=== PATIENT | male | born 1985 | race Caucasian/White ===

== ENCOUNTER 2021-03-14 16:33 | Emergency (ER) | payer OTHER ==
[~2021-03-14] VITALS: Ht 170.2 cm; Wt 100.0 kg
[2021-03-14] MEDS ORDERED: ZESTRIL40 M1 PO (17:00)
[2021-03-14 18:50] LABS: BASO # 0.07 K/mm3 (0.02-0.10); EOS # 0.22 K/mm3 (0.04-0.40); EOS % 3.5 % (0.0-4.0); HEMATOCRIT 49.1 % (42.0-52.0); HEMOGLOBIN 16.9 g/dL (13.5-18.0); LYMPH# 2.03 K/mm3 (1.50-4.00); MEAN CELL VOLUME 89 fl (78-100); MEAN CORPUSCULAR HEMOGLOBIN 31 pg (27-31); MEAN CORPUSCULAR HGB CONC 34 g/dL (33-37); MEAN PLATELET VOLUME 10.5 fl (7.4-10.4); MONO # 0.46 K/mm3 (0.20-0.80); NEU # 3.51 K/mm3 (1.40-6.50); PLATELET COUNT 137 K/mm3 (130-400); RED BLOOD COUNT 5.52 M/mm3 (4.20-5.60); RED CELL DISTRIBUTION WIDTH 13.3 % (11.5-14.5); WHITE BLOOD COUNT 6.3 K/mm3 (4.8-10.8)
[2021-03-14 18:59] LABS: ALBUMIN 4.3 g/dL (3.5-5.0); POTASSIUM 3.6 mmol/L (3.5-5.1); SODIUM 139 mmol/L (136-145)
[2021-03-14 19:01] LABS: GLUCOSE 127 mg/dL (75-110); TOTAL PROTEIN 7.9 g/dL (6.4-8.3)
[2021-03-14 19:02] LABS: CARBON DIOXIDE 23 mmol/L (22-29)
[2021-03-14 19:03] LABS: TOTAL BILIRUBIN 0.7 mg/dL (0.2-1.2)
[2021-03-14 19:07] LABS: AST-SGOT 44 U/L (5-34)
[2021-03-14 19:08] LABS: ALT/SGPT 50 U/L (0-55)
[2021-03-14 19:24] LABS: TROPONIN-I < 0.030 ng/mL (<0.030)
[2021-03-14] MEDS ORDERED: LISINOPRIL40 MG PO (19:49)
[2021-03-14 20:02] VITALS: BP 158/106
== END 2021-03-14 20:02 | disposition home or self-care (01) ==
LOC: ED 16:33
PROVIDERS: Physician Assistant
DX: R04.0 Epistaxis (principal); I10 Essential (primary) hypertension; Z79.899 Other long term (current) drug therapy
CPT/HCPCS: J1200; J7030

== ENCOUNTER 2021-10-24 01:45 | Emergency (ER) | payer OTHER ==
[~2021-10-24] VITALS: Ht 172.7 cm; Wt 100.0 kg
[~2021-10-24 01:45] MED LIST: LISINOPRIL40 MG PO; ZESTRIL40 M1 PO
[2021-10-24 01:59] VITALS: BP 151/92
[2021-10-24] MEDS ORDERED: NAPROXEN D/R500 MG PO (02:04)
[2021-10-24] MEDS ORDERED: PRILOSEC OTC20 MG PO (02:04)
[2021-10-24] MEDS ORDERED: TRAMADOL 50 MG TAB PO (03:18)
[2021-10-24] MEDS ORDERED: DECADRON 4MG TAB4 MG PO (03:18)
== END 2021-10-24 03:25 | disposition home or self-care (01) ==
LOC: ED 01:45
DX: M54.50 Low back pain, unspecified (principal); Z28.310 Unvaccinated for COVID-19
CPT/HCPCS: J1885

== ENCOUNTER 2023-12-29 01:09 | Emergency (ER) | payer OTHER ==
[~2023-12-29] VITALS: Ht 172.7 cm; Wt 94.1 kg
[~2023-12-29 01:09] MED LIST changes: +ACID-PEP20 MG PO; +AMOXICILLIN 50500 MG PO; +DECADRON 4MG TAB4 MG PO; +EPIPEN 2-PAK1 MG/ML MR; +NAPROXEN D/R500 MG PO; +PREDNISONE 5MG5 MG PO; +PRILOSEC OTC20 MG PO; +TRAMADOL 50 MG TAB PO; +ZYRTEC ALLERGY10 MG PO
[2023-12-29 01:55] LABS: BASO # 0.06 K/mm3 (0.02-0.10); EOS # 0.18 K/mm3 (0.04-0.40); EOS % 2.4 % (0.0-4.0); HEMATOCRIT 49.1 % (42.0-52.0); HEMOGLOBIN 16.6 g/dL (13.5-18.0); LYMPH# 2.59 K/mm3 (1.50-4.00); MEAN CELL VOLUME 89 fl (78-100); MEAN CORPUSCULAR HEMOGLOBIN 30 pg (27-31); MEAN CORPUSCULAR HGB CONC 34 g/dL (33-37); MEAN PLATELET VOLUME 10.3 fl (7.4-10.4); MONO # 0.82 K/mm3 (0.20-0.80); NEU # 3.86 K/mm3 (1.40-6.50); PLATELET COUNT 105 K/mm3 (130-400); RED BLOOD COUNT 5.49 M/mm3 (4.20-5.60); RED CELL DISTRIBUTION WIDTH 12.5 % (11.5-14.5); WHITE BLOOD COUNT 7.5 K/mm3 (4.8-10.8)
[2023-12-29 01:59] LABS: ALBUMIN 4.2 g/dL (3.5-5.0)
[2023-12-29 02:01] LABS: CALCIUM 9.9 mg/dL (8.3-10.5)
[2023-12-29 02:02] LABS: TOTAL PROTEIN 8.7 g/dL (6.4-8.3)
[2023-12-29 02:04] LABS: TOTAL BILIRUBIN 1.6 mg/dL (0.2-1.2)
[2023-12-29] MEDS ORDERED: NS 1,000 ML IV SCH (02:45)
[2023-12-29] MEDS ORDERED: LISINOPRIL20 MG PO (04:17)
[2023-12-29 06:08] LABS: CALCIUM 9.2 mg/dL (8.3-10.5)
[2023-12-29 06:54] VITALS: BP 121/91
== END 2023-12-29 06:58 | disposition home or self-care (01) ==
LOC: ED 01:09
PROVIDERS: Registered Nurse
DX: F10.129 Alcohol abuse with intoxication, unspecified (principal); E87.1 Hypo-osmolality and hyponatremia
CPT/HCPCS: J7030